=== PATIENT | male | born 1980 | race Caucasian/White ===

== ENCOUNTER 2023-06-26 10:37 | Emergency (ER) | payer SELFPAY ==
[2023-06-26 10:43] VITALS: BP 142/95; PULSE 84; RESP 16; TEMP 36.8; O2SAT 99; BMI 45.2
--- NOTE | 2023-06-26 10:49 | PC.NURSE ---
no gum or facial swelling, no drainage at site of complaint, area has a small area of white at tooth and gum line.
[2023-06-26 10:50] VITALS: O2SAT 99
--- NOTE | 2023-06-26 11:45 | ED.DENTAL1 ---
HPI - Dental/Oral General Chief complaint: Dental/Oral Stated complaint: DENTAL PAIN Time Seen by Provider: 06/26/23 10:50 Source: patient Mode of arrival: walk-in History of Present Illness HPI Narrative: pain in the right upper front molar that began a week ago - the pain has waxed and waned but not gone away. He has not called a dentist - I thought it would get better on its own . No systemic complaints Related Data Previous Rx's Medication Instructions Recorded clindamycin HCl 150 mg capsule 450 mg PO TID 7 days #63 caps 06/26/23 nabumetone 750 mg tablet 750 mg PO BID PRN pain #20 tabs 06/26/23 Allergies Allergy/AdvReac Type Severity Reaction Status Date / Time No Known Drug Allergies Allergy Verified 06/26/23 10:46 Exam Narrative Exam Narrative: General: The patient is comfortable, alert and oriented x3, well appearing, non toxic in no apparent distress. Head: Atraumatic and normocephalic. Eyes: Normal conjunctiva ENT: The oropharynx is normal. No pharyngeal erythema, uvular edema, tonsillar exudates, asymmetry or trismus. Uvula is midline. Mouth is normal to inspection with the exception of a pain on percussion of the tooth #3 without evidence of dental caries. There is no evidence of facial asymmetry or abscess formation. Floor of the mouth is soft. No tenderness in the submental or submandibular space. No tongue elevation or deviation. The patient has no evidence of periapical abscess, gingivitis or other acute pathology. Airway is patent. Neck: The neck demonstrates normal range of motion. No meningeals signs are present. No stridor. No masses or lymphandenopathy noted. Respiratory: No acute distress, lungs are clear to auscultation, no wheezing, rhonchi, or rales noted. No stridor or retractions are noted. Cardiovascular: Regular rate and rhythm Skin: The skin exam shows no evidence of rashes Neuro: Alert and oriented x4, normal speech Lymphatic: No cervical lymphadenopathy Constitutional Vital Signs, click to edit/add: Last Vital Signs Temp 98.2 F 06/26/23 10:43 Pulse 84 06/26/23 10:43 Resp 16 06/26/23 10:43 BP 142/95 H 06/26/23 10:43 Pulse Ox 99 06/26/23 10:50 O2 Del Method Room Air 06/26/23 10:50 Course Vital Signs Vital signs: Vital Signs Temperature 98.2 F 06/26/23 10:43 Pulse Rate 84 06/26/23 10:43 Respiratory Rate 16 06/26/23 10:43 Blood Pressure 142/95 H 06/26/23 10:43 Pulse Oximetry 99 06/26/23 10:43 Oxygen Delivery Method Room Air 06/26/23 10:43 Temperature 98.2 F 06/26/23 10:43 Pulse Rate 84 06/26/23 10:43 Respiratory Rate 16 06/26/23 10:43 Blood Pressure 142/95 H 06/26/23 10:43 Pulse Oximetry 99 06/26/23 10:50 Oxygen Delivery Method Room Air 06/26/23 10:50 MDM - Dental/Oral MDM Narrative Medical decision making narrative: referred to dentist. Given topical dental anesthetic paste in the ED and prescribed relafen and clindamycin to take at home. Discharge Plan Discharge Chief Complaint: Dental/Oral Clinical Impression: Toothache Patient Disposition: Home, Self-Care Time of Disposition Decision: 11:47 Prescriptions / Home Meds: New clindamycin HCl 150 mg capsule 450 mg PO TID 7 Days Qty: 63 0RF nabumetone 750 mg tablet 750 mg PO BID PRN (Reason: pain) Qty: 20 0RF Instructions: Toothache (ED) Additional Instructions: refer to dentist Stand Alone Forms: Portal Instructions
[2023-06-26] MEDS: BENZOCAINE 30 ML, lidocaine HCL 15 ML MM (12:00)
== END 2023-06-26 12:05 | disposition home or self-care (01) ==
PROVIDERS: Emergency Provider Emergency Medicine; PCP Family Medicine
DX: K08.89 Other specified disorders of teeth and supporting structures (principal)
CPT/HCPCS: 99282